=== PATIENT | female | born 1960 | race Caucasian/White ===

== ENCOUNTER 2017-03-04 19:32 | Inpatient (IN) | payer BC, OTHER ==
[~2017-03-04] VITALS: Ht 177.8 cm; Wt 104.3 kg
[2017-03-04 19:40] VITALS: BP_SYST 141
[2017-03-04] MEDS ORDERED: NITROGLYCERIN 1 INCH (GM) OINT. TP ONE (20:15)
[2017-03-04] MEDS ORDERED: ASPIRIN 81 MG TAB.CHEW PO ONE (20:15)
[2017-03-04 20:35] LABS: BASOPHILS # (AUTO) 0.1 K/uL (0.0-0.2); BASOPHILS % (AUTO) 0.4 % (0.0-2.0); HEMATOCRIT 46.9 % (36-48); HEMOGLOBIN 14.8 g/dL (12.0-16.0); LYMPHOCYTES # (AUTO) 0.6 K/uL (1.0-5.5); LYMPHOCYTES % (AUTO) 4.8 % (20.5-51.5); MEAN CORPUSCULAR HEMOGLOBIN 27 pg (27-31); MEAN CORPUSCULAR HGB CONC 32 % (32-36); MEAN CORPUSCULAR VOLUME 85 fL (79.0-98.0); MONOCYTES % (AUTO) 0.2 % (1.7-9.3); NEUTROPHILS % (AUTO) 94.6 % (40.0-70.0); PLATELET COUNT (AUTO) 228 K/uL (130-430); RED BLOOD CELL COUNT(AUTO) 5.51 MIL/uL (4.2-6.2); RED CELL DISTRIBUTION WIDTH 13.2 % (9.0-15.0); WHITE BLOOD COUNT (AUTO) 12.7 K/uL (4.8-10.8)
[2017-03-04 20:44] LABS: CALCIUM 8.8 mg/dL (8.4-11.0); CREATININE 1.14 mg/dL (0.55-1.30); POTASSIUM 3.9 mmol/L (3.5-5.1)
[2017-03-04 20:45] LABS: PROTHROMBIN TIME 10.7 SECS (9.5-12.5)
[2017-03-04 20:49] LABS: ALBUMIN 3.8 g/dL (3.4-4.8); TOTAL BILIRUBIN 0.5 mg/dL (0.0-1.0)
[2017-03-04 20:54] LABS: BILIRUBIN,URINE NEGATIVE (NEGATIVE); BLOOD, URINE 1+ (NEGATIVE); CLARITY/URINE CLEAR (CLEAR); COLOR,URINE YELLOW (YELLOW); GLUCOSE,URINE 2+ (NEGATIVE); KETONES,URINE TRACE (NEGATIVE); LEUKOCYTE ESTERASE ,URINE NEGATIVE (NEGATIVE); NITRITE, URINE NEGATIVE (NEGATIVE); PROTEIN URINE NEGATIVE (NEGATIVE); UROBILINOGEN,URINE 0.2 (0.2-1.0)
[2017-03-04] MEDS ORDERED: MORPHINE 4 MG/ML INJ. SYRINGE IVP ONE (21:00)
[2017-03-04] MEDS ORDERED: MAGNESIUM CITRATE 300 ML ORAL SOLUTION PO ONE (21:00)
[2017-03-04] MEDS ORDERED: DIPHENHYDRAMINE INJ 50 MG/ML VIAL IVP ONE (21:00)
[2017-03-04 21:14] LABS: BACTERIA,URINE MANY /HPF (None Seen)
[2017-03-04 21:15] LABS: MUCUS,URINE None Seen /LPF (None Seen)
[2017-03-04] MEDS ORDERED: METOPROLOL TARTRATE 5 MG/5 ML VIAL IVP ONE (21:45)
[2017-03-04] MEDS ORDERED: METOPROLOL TARTRATE 5 MG/5 ML VIAL ONE (21:52)
[2017-03-04] MEDS ORDERED: HEPARIN SODIUM,PORCINE 5000 UNITS/ML VIAL IVP ONE (22:15)
[2017-03-04] MEDS ORDERED: POTASSIUM CHLORIDE 20 MEQ/PKT PACKET PO ONE (22:15)
[2017-03-04] MEDS ORDERED: HEPARIN 25,000 UNITS/D5W 250ML 250 ML IV ONE (22:30)
[2017-03-04 23:33] VITALS: BP_SYST 136
[2017-03-04] MEDS ORDERED: LISI-600 PO (23:49)
[2017-03-04] MEDS ORDERED: ASA81 (23:49)
[2017-03-05] MEDS ORDERED: INSULIN REGULAR, HUMAN 100 UNITS/ML, 10 ML VIAL (novoLIN R) SUBCUT PRN (00:15)
[2017-03-05] MEDS ORDERED: NITROGLYCERIN 0.4 MG TAB.SUBL SL PRN (00:15)
[2017-03-05] MEDS ORDERED: ACETAMINOPHEN 325 MG TABLET PO PRN (00:15)
[2017-03-05] MEDS ORDERED: ONDANSETRON HCL 4 MG/2 ML VIAL IVP PRN (00:15)
[2017-03-05] MEDS ORDERED: DIPHENHYDRAMINE INJ 50 MG/ML VIAL IVP PRN (00:15)
[2017-03-05] MEDS ORDERED: HEPARIN 25,000 UNITS in 250 ML PREMIX IV PRN (00:15)
[2017-03-05] MEDS ORDERED: HEPARIN SODIUM,PORCINE 2000 UNITS/0.4 ML BOLUS IVP PRN (00:15)
[2017-03-05] MEDS ORDERED: MORPHINE 2 MG/ML INJ. SYRINGE IVP PRN (00:15)
[2017-03-05] MEDS ORDERED: MORPHINE 4 MG/ML INJ. SYRINGE IVP PRN (00:15)
[2017-03-05] MEDS ORDERED: HEPARIN SODIUM,PORCINE 3000 UNITS/0.6 ML BOLUS IVP PRN (00:15)
[2017-03-05] MEDS ORDERED: IPRATROPIUM/ALBUTEROL SULFATE 3 ML AMPUL.NEB INH PRN (00:15)
[2017-03-05] MEDS ORDERED: TEMAZEPAM 15 MG CAPSULE PO PRN (00:15)
[2017-03-05] MEDS ORDERED: DEXTROSE 50% JECT 50 ML DISP.SYRIN IVP PRN (00:15)
[2017-03-05 03:32] VITALS: BP_SYST 122
[2017-03-05 05:24] VITALS: BP_SYST 122
[2017-03-05 08:00] VITALS: BP_SYST 117
[2017-03-05] MEDS ORDERED: ASPIRIN 81 MG TABLET(ECOTRIN) PO SCH (09:00)
[2017-03-05] MEDS ORDERED: ENOXAPARIN SODIUM 100 MG/ML SYRINGE SUBCUT ONE (09:30)
[2017-03-05 09:54] LABS: CHOLESTEROL 255 mg/dL (<200); HDL CHOLESTEROL 55 mg/dL (>55); LDL CHOLESTEROL 179 mg/dL (<100); TRIGLYCERIDES 162 mg/dL (30-150)
[2017-03-05 12:40] VITALS: BP_SYST 127
[2017-03-05] MEDS ORDERED: CARVEDILOL 3.125 MG TABLET (COREG) PO ONE (13:45)
[2017-03-05] MEDS ORDERED: ATORVASTATIN 20 MG TABLET PO ONE (14:00)
[2017-03-05 14:18] VITALS: BP_SYST 120
[2017-03-05] MEDS ORDERED: ENOXAPARIN SODIUM 100 MG/ML SYRINGE SUBCUT SCH (21:00)
[2017-03-05] MEDS ORDERED: LISINOPRIL 20 MG TABLET PO SCH (21:00)
[2017-03-05] MEDS ORDERED: CARVEDILOL 3.125 MG TABLET (COREG) PO SCH (21:00)
[2017-03-05] MEDS ORDERED: *HEPARIN PER PHARMACY XX PRN (23:00)
[2017-03-06] MEDS ORDERED: ATORVASTATIN 20 MG TABLET PO SCH (09:00)
== END 2017-03-05 16:45 | disposition short-term general hospital (02) | DRG 282 ==
LOC: SED 19:32 → STU 22:56
PROVIDERS: ADMIT Internal Medicine; ATTEND Internal Medicine
DX: I21.4 Non-ST elevation (NSTEMI) myocardial infarction (principal); I10 Essential (primary) hypertension; J45.909 Unspecified asthma, uncomplicated; E11.9 Type 2 diabetes mellitus without complications; E66.8 Other obesity; Z68.33 Body mass index [BMI] 33.0-33.9, adult; Z90.710 Acquired absence of both cervix and uterus
CPT/HCPCS: 36415; 71010; 80053; 80061; 81000-TC; 82962; 83880; 84484; 85025; 85610-TC; 85730-TC; 87086; 93005; 93306; 96374; 96375; 99291; J1200; J1644; J1650; J1815; J2270; J3490

== ENCOUNTER 2017-04-04 19:50 | Inpatient (IN) | payer BC ==
[~2017-04-04] VITALS: Ht 175.3 cm; Wt 102.5 kg
[~2017-04-04 19:50] MED LIST: ASA81 PO; LISI-600 PO
[2017-04-04 19:54] VITALS: BP_SYST 150
[2017-04-04] MEDS ORDERED: ASPIRIN 81 MG TAB.CHEW PO ONE (20:30)
[2017-04-04] MEDS ORDERED: NITROGLYCERIN 0.4 MG TAB.SUBL SL ONE (20:30)
[2017-04-04 20:43] LABS: CALCIUM 8.9 mg/dL (8.4-11.0); CREATININE 1.04 mg/dL (0.55-1.30); POTASSIUM 3.9 mmol/L (3.5-5.1)
[2017-04-04 20:47] LABS: BASOPHILS % (AUTO) 0.5 % (0.0-2.0); EOSINOPHILS # (AUTO) 0.2 K/uL (0.0-0.4); HEMOGLOBIN 13.3 g/dL (12.0-16.0); LYMPHOCYTES # (AUTO) 2.3 K/uL (1.0-5.5); LYMPHOCYTES % (AUTO) 25.6 % (20.5-51.5); MEAN CORPUSCULAR HEMOGLOBIN 28 pg (27-31); MEAN CORPUSCULAR HGB CONC 33 % (32-36); MEAN CORPUSCULAR VOLUME 84 fL (79.0-98.0); MONOCYTES # (AUTO) 0.5 K/uL (0.0-1.0); MONOCYTES % (AUTO) 5.9 % (1.7-9.3); PLATELET COUNT (AUTO) 211 K/uL (130-430); RED BLOOD CELL COUNT(AUTO) 4.77 MIL/uL (4.2-6.2); RED CELL DISTRIBUTION WIDTH 13.3 % (9.0-15.0)
[2017-04-04 20:49] LABS: PROTHROMBIN TIME 10.6 SECS (9.5-12.5)
[2017-04-04 20:50] LABS: ALBUMIN 3.6 g/dL (3.4-4.8); TOTAL BILIRUBIN 0.8 mg/dL (0.0-1.0)
[2017-04-04] MEDS ORDERED: LISI-209 PO (21:03)
[2017-04-04] MEDS ORDERED: LIP40 PO (21:03)
[2017-04-04] MEDS ORDERED: CARV6.2554 PO (21:04)
[2017-04-04] MEDS ORDERED: TICA90TA PO (21:04)
[2017-04-04 22:12] LABS: BILIRUBIN,URINE NEGATIVE (NEGATIVE); BLOOD, URINE NEGATIVE (NEGATIVE); CLARITY/URINE CLEAR (CLEAR); GLUCOSE,URINE NEGATIVE (NEGATIVE); KETONES,URINE NEGATIVE (NEGATIVE); LEUKOCYTE ESTERASE ,URINE NEGATIVE (NEGATIVE); NITRITE, URINE NEGATIVE (NEGATIVE); PROTEIN URINE NEGATIVE (NEGATIVE); UROBILINOGEN,URINE 0.2 (0.2-1.0)
[2017-04-04 22:29] LABS: COLOR,URINE STRAW (YELLOW)
[2017-04-04] MEDS ORDERED: ACETAMINOPHEN 325 MG TABLET PO PRN (23:00)
[2017-04-04] MEDS ORDERED: NITROGLYCERIN 0.4 MG TAB.SUBL SL PRN (23:00)
[2017-04-04] MEDS ORDERED: TEMAZEPAM 15 MG CAPSULE PO PRN (23:00)
[2017-04-04 23:16] VITALS: BP_SYST 129
[2017-04-05 03:40] VITALS: BP_SYST 124
[2017-04-05 08:09] VITALS: BP_SYST 120
[2017-04-05] MEDS ORDERED: CARVEDILOL 6.25 MG TABLET (COREG) PO SCH (12:45)
[2017-04-05 13:01] VITALS: BP_SYST 134
[2017-04-05] MEDS ORDERED: CARVEDILOL 6.25 MG TABLET (COREG) PO ONE (13:15)
[2017-04-05] MEDS ORDERED: ASPIRIN 81 MG TAB.CHEW PO ONE (13:15)
[2017-04-05] MEDS ORDERED: LISINOPRIL 5 MG TABLET PO ONE (13:15)
[2017-04-05 17:03] VITALS: BP_SYST 151
[2017-04-05] MEDS ORDERED: BRILINTA 90 MG PO SCH (21:00)
[2017-04-05] MEDS ORDERED: ATORVASTATIN 20 MG TABLET PO SCH (21:00)
[2017-04-06] MEDS ORDERED: ASPIRIN 81 MG TAB.CHEW PO SCH (09:00)
[2017-04-06] MEDS ORDERED: LISINOPRIL 5 MG TABLET PO SCH (09:00)
== END 2017-04-05 21:05 | disposition home or self-care (01) | DRG 313 ==
LOC: SED 19:50 → STU 22:59
PROVIDERS: ADMIT Internal Medicine; ATTEND Internal Medicine
DX: R07.89 Other chest pain (principal); I25.10 Atherosclerotic heart disease of native coronary artery without angina pectoris; I10 Essential (primary) hypertension; J45.909 Unspecified asthma, uncomplicated; E66.9 Obesity, unspecified; K57.90 Diverticulosis of intestine, part unspecified, without perforation or abscess without bleeding; Z95.5 Presence of coronary angioplasty implant and graft; Z68.33 Body mass index [BMI] 33.0-33.9, adult; Z79.899 Other long term (current) drug therapy
CPT/HCPCS: 36415; 71010; 80053; 81003; 82550-TC; 83880; 84484; 85025; 85379; 85610-TC; 87081; 93005; 99285

== ENCOUNTER 2019-05-30 09:18 | Emergency (ER) | payer BC ==
[~2019-05-30] VITALS: Ht 177.8 cm; Wt 102.1 kg
[~2019-05-30 09:18] MED LIST changes: +CARV6.2554 PO; +LIP40 PO; +LISI-209 PO; -LISI-600 PO; +TICA90TA PO
[2019-05-30 09:21] VITALS: BP_SYST 146
--- NOTE | 2019-05-30 09:31 | NUR ---
pl Patient to ER bed 3 to gown for evaluation. Side rails up. Report given to Faheem ALEGRE.
[2019-05-30] MEDS ORDERED: KETAMINE 30 MG/3 ML SYRINGE 15 MG in NS 100 ML IV ONE (09:45)
[2019-05-30] MEDS ORDERED: MORPHINE 4 MG/ML INJ. SYRINGE IVP ONE (09:45)
--- NOTE | 2019-05-30 09:45 | NUR ---
ER Dr. Couch at bedside examining patient.
--- NOTE | 2019-05-30 09:55 | NUR ---
Patient is awake, alert, and oriented x4. Patient is complaining of sharp/burning right leg pain x6 weeks. She states she has been seeing a physician, but the medication perscribed has not helped.
--- NOTE | 2019-05-30 10:05 | NUR ---
Spoke with pharmacy and informed them that our pyxsis is out of ketamine. Darius verbalized understanding.
--- NOTE | 2019-05-30 10:30 | NUR ---
Ketamine still not available. Spoke with Danis in pharmacy.
[2019-05-30] MEDS ORDERED: KETAMINE 30 MG/3 ML SYRINGE ONE (10:55)
--- NOTE | 2019-05-30 11:46 | NUR ---
Pt ambulated to bathroom at this time.
[2019-05-30 12:10] VITALS: BP_SYST 162
--- NOTE | 2019-05-30 12:10 | NUR ---
Patient given written and verbal discharge instructions and verbalizes understanding. ER MD discussed with patient the results and treatment provided. Patient in stable condition. ID arm band removed. IV catheter removed intact and dressing applied, no active bleeding. Rx of Myrtle given. Patient educated on pain management and to follow up with PMD. Pain Scale 3/10 tolerable for patient . Opportunity for questions provided and answered. Medication side effect fact sheet provided.
== END 2019-05-30 12:10 | disposition home or self-care (01) ==
LOC: SED 09:18
DX: M54.31 Sciatica, right side (principal); J44.9 Chronic obstructive pulmonary disease, unspecified; I10 Essential (primary) hypertension; Z79.82 Long term (current) use of aspirin; Z79.899 Other long term (current) drug therapy
CPT/HCPCS: 96374; 96375; 99283; J2270

== ENCOUNTER 2021-08-11 11:17 | Emergency (ER) | payer MEDICAID, SELFPAY ==
[~2021-08-11] VITALS: Ht 177.8 cm; Wt 99.8 kg
[2021-08-11 11:40] VITALS: BP_SYST 138
[2021-08-11] MEDS: HYDROcodone/ACETAMIN 5-325 MG TAB (NORCO/ VICODIN) PO ONE (12:27)
[2021-08-11] MEDS ORDERED: IBUP-1969 PO (12:54)
[2021-08-11] MEDS ORDERED: HYDR-3917 PO (12:54)
[2021-08-11 16:09] VITALS: BP_SYST 138
== END 2021-08-11 16:09 | disposition home or self-care (01) ==
LOC: SED 11:17
DX: S82.65XA Nondisplaced fracture of lateral malleolus of left fibula, initial encounter for closed fracture (principal); S92.355A Nondisplaced fracture of fifth metatarsal bone, left foot, initial encounter for closed fracture; I10 Essential (primary) hypertension; J44.9 Chronic obstructive pulmonary disease, unspecified; Z79.899 Other long term (current) drug therapy; Z79.82 Long term (current) use of aspirin; W01.0XXA Fall on same level from slipping, tripping and stumbling without subsequent striking against object, initial encounter; Y93.89 Activity, other specified; Y92.89 Other specified places as the place of occurrence of the external cause; Y99.8 Other external cause status
CPT/HCPCS: 99284

== ENCOUNTER 2022-02-28 18:45 | Emergency (ER) | payer MEDICAID ==
[~2022-02-28] VITALS: Ht 175.3 cm; Wt 104.3 kg
[~2022-02-28 18:45] MED LIST changes: +HYDR-3917 PO; +IBUP-1969 PO
--- NOTE | 2022-02-28 19:09 | NUR ---
Pt to ER w/ c/o GREWAL 04/12 sharp in nature w/ associated neck and shoulder pain x 3 days. Pt states blurry vision as well. Denies N/V/D. Denies chest pain, denies weakness. Pt ambulates with strong steady gait. Normal skin color for ethnicity. No neurological deficits. Pupils 3 mm bilaterally PERRLA. Equal infant babysitter strength bialterally. No arm drift.
--- NOTE | 2022-02-28 19:11 | NUR ---
Pt states last took 600 mg Tylenol at 1600 today.
[2022-02-28 19:13] VITALS: BP_SYST 133
--- NOTE | 2022-02-28 19:19 | NUR ---
Pt states "I have had worse GREWAL in the past. This is not the worst GREWAL I have ever had".
--- NOTE | 2022-02-28 20:40 | NUR ---
Patient LWBS. made aware.
== END 2022-02-28 20:40 | disposition left against medical advice (07) ==
LOC: SED 18:45
DX: R51.9 Headache, unspecified (principal); M54.2 Cervicalgia; Z53.21 Procedure and treatment not carried out due to patient leaving prior to being seen by health care provider